=== PATIENT | female | born 1990 | race Caucasian/White ===

== ENCOUNTER 2017-07-09 18:26 | Emergency (ER) | payer MEDICARE, MEDICAID ==
[~2017-07-09] VITALS: Ht 165.1 cm; Wt 102.7 kg
[2017-07-09 18:27] VITALS: BP 131/88
== END 2017-07-09 20:38 | disposition left against medical advice (07) ==
LOC: M ED 18:26
DX: Z53.21 Procedure and treatment not carried out due to patient leaving prior to being seen by health care provider (principal)

== ENCOUNTER 2017-09-05 19:12 | Emergency (ER) | payer MEDICARE, MEDICAID ==
[2017-09-05 21:15] LABS: INFLUENZA A AMPLIFICATION NEGATIVE (NEGATIVE); INFLUENZA B AMPLIFICATION NEGATIVE (NEGATIVE)
== END 2017-09-05 22:18 | disposition home or self-care (01) ==
LOC: M ED 19:12
DX: B34.9 Viral infection, unspecified (principal); J06.9 Acute upper respiratory infection, unspecified; F17.210 Nicotine dependence, cigarettes, uncomplicated; Z79.51 Long term (current) use of inhaled steroids; Z87.42 Personal history of other diseases of the female genital tract
CPT/HCPCS: 87502

== ENCOUNTER 2019-08-24 21:06 | Emergency (ER) | payer MEDICARE, MEDICAID ==
[~2019-08-24 21:06] MED LIST: ADV250INH INH; BENZ200C70 PO; MUCI600T37 PO; ZOFR4TAB14 PO
[2019-08-25] MEDS ORDERED: LIDOCAINE 4% CREAM 5GM (LMX4) TOP STA (00:33)
[2019-08-25] MEDS ORDERED: ANEC4CRE3 TOP (00:35)
[2019-08-25] MEDS ORDERED: NAPR-837 PO (00:35)
[2019-08-25 00:42] VITALS: BP 159/89
[2019-08-25] MEDS ORDERED: NAPROXEN 250 MG TAB PO ONE (00:45)
--- NOTE | 2019-08-25 07:28 | REP ---
Right foot four views : There is no fracture or dislocation. Mineralization and joint spaces are normal. There are no calcifications or foreign bodies. Impression: Negative right foot . Electronically Signed by Seferino Estes MD 08/25/2019 07:20 A
--- NOTE | 2019-08-25 07:32 | REP ---
Right foot four views: Mineralization and joint spaces are unremarkable except that there may be fibrous union of the posterior talus with the calcaneus and the congenital variant. There is no fracture or dislocation. There are no calcifications or foreign bodies. 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 Otherwise, negative right foot. Electronically Signed by Seferino Estes MD 08/25/2019 07:23 A
== END 2019-08-25 00:50 | disposition home or self-care (01) ==
LOC: M ED 21:06
DX: M79.671 Pain in right foot (principal); J44.9 Chronic obstructive pulmonary disease, unspecified; F17.200 Nicotine dependence, unspecified, uncomplicated

== ENCOUNTER 2019-08-25 15:47 | Emergency (ER) | payer MEDICARE, MEDICAID ==
[~2019-08-25] VITALS: Ht 170.2 cm; Wt 106.0 kg
[~2019-08-25 15:47] MED LIST changes: +ANEC4CRE3 TOP; +NAPR-837 PO
--- NOTE | 2019-08-25 16:35 | REP ---
Left forearm two views : There is no fracture or dislocation. Mineralization and joint spaces are normal. There are no calcifications or foreign bodies. Impression: Negative left forearm . Electronically Signed by Seferino Estes MD 08/25/2019 04:26 P
[2019-08-25 20:31] VITALS: BP 140/70
== END 2019-08-25 20:34 | disposition home or self-care (01) ==
LOC: M ED 15:47 → EEVIPCON 15:47 → M ED 20:34
DX: S56.912A Strain of unspecified muscles, fascia and tendons at forearm level, left arm, initial encounter (principal); T76.11XA Adult physical abuse, suspected, initial encounter; X50.9XXA Other and unspecified overexertion or strenuous movements or postures, initial encounter; Y04.8XXA Assault by other bodily force, initial encounter; Y07.59 Other non-family member, perpetrator of maltreatment and neglect; Y92.009 Unspecified place in unspecified non-institutional (private) residence as the place of occurrence of the external cause; Y93.89 Activity, other specified; Y99.8 Other external cause status; J44.9 Chronic obstructive pulmonary disease, unspecified; F17.210 Nicotine dependence, cigarettes, uncomplicated

== ENCOUNTER 2021-04-02 15:37 | Emergency (ER) | payer MEDICARE, MEDICAID ==
[~2021-04-02] VITALS: Ht 170.2 cm; Wt 106.1 kg
[2021-04-02 15:37] VITALS: BP 136/83
== END 2021-04-02 16:54 | disposition left against medical advice (07) ==
LOC: M ED 15:37
DX: Z53.29 Procedure and treatment not carried out because of patient's decision for other reasons (principal)

== ENCOUNTER → 2021-05-24 | Outpatient (REF) | payer MEDICARE, MEDICAID ==
[2021-05-24 19:00] LABS: HEMOGLOBIN 15.8 g/dl (12.0-15.5); MEAN CORPUSCULAR HEMOGLOBIN 28.7 pg (27.0-33.0); MEAN CORPUSCULAR HGB CONC 32.9 g/dl (32.0-36.5); MEAN CORPUSCULAR VOLUME 87.3 fl (80.0-96.0); PLATELET COUNT, AUTOMATED 281 10^3/uL (150-450); WHITE BLOOD COUNT 9.4 10^3/uL (4.0-10.0)
[2021-05-24 20:38] LABS: HCG, SERUM QUANTITATIVE 1846 MIU/ML; HEPATITIS B SURFACE ANTIGEN NEGATIVE (NEGATIVE); HEPATITIS C VIRUS ABY INDEX < 0.0 INDEX (<0.8); HIV 1&2 SCREEN CENTAUR NEGATIVE (NEGATIVE)
== END ==
LOC: M LAB REF 16:35
PROVIDERS: ATTEND Advanced Practice Midwife
DX: Z32.01 Encounter for pregnancy test, result positive (principal)
CPT/HCPCS: 84702; 85027; 86762; 86780; 86803; 86850; 86900; 86901; 87086; 87340; 87389; J2790

== ENCOUNTER → 2021-06-21 | Outpatient (REF) | payer MEDICARE, MEDICAID ==
[2021-06-21 16:52] LABS: BASO # 0.1 10^3/uL (0.0-0.2); BASO % 0.5 % (0.0-1.0); EOS # 0.2 10^3/uL (0.0-0.5); EOS % 1.3 % (0.0-3.0); HEMATOCRIT 43.4 % (36.0-47.0); HEMOGLOBIN 14.5 g/dl (12.0-15.5); LYMPH # 2.8 10^3/uL (1.5-5.0); LYMPH % 20.7 % (24.0-44.0); MEAN CORPUSCULAR HEMOGLOBIN 28.9 pg (27.0-33.0); MEAN CORPUSCULAR HGB CONC 33.4 g/dl (32.0-36.5); MEAN CORPUSCULAR VOLUME 86.5 fl (80.0-96.0); MONO # 0.9 10^3/uL (0.0-0.8); MONO % 6.8 % (2.0-8.0); NEUTROPHILS # 9.7 10^3/uL (1.5-8.5); NEUTROPHILS % 70.3 % (36.0-66.0); PLATELET COUNT, AUTOMATED 278 10^3/uL (150-450); RED BLOOD COUNT 5.02 10^6/uL (4.00-5.40); WHITE BLOOD COUNT 13.8 10^3/uL (4.0-10.0)
== END ==
LOC: M LAB REF 16:28
PROVIDERS: ATTEND Advanced Practice Midwife
DX: Z34.01 Encounter for supervision of normal first pregnancy, first trimester (principal)

== ENCOUNTER → 2021-10-24 | Outpatient (CLI) | payer MEDICARE, MEDICAID ==
[2021-10-24 14:27] LABS: HEMATOCRIT 38.2 % (36.0-47.0); MEAN CORPUSCULAR HEMOGLOBIN 29.7 pg (27.0-33.0); MEAN CORPUSCULAR VOLUME 87.2 fl (80.0-96.0); PLATELET COUNT, AUTOMATED 266 10^3/uL (150-450); RED BLOOD COUNT 4.38 10^6/uL (4.00-5.40); WHITE BLOOD COUNT 14.7 10^3/uL (4.0-10.0)
== END ==
LOC: M LAB 12:51
PROVIDERS: ATTEND Obstetrics & Gynecology
DX: Z34.02 Encounter for supervision of normal first pregnancy, second trimester (principal)

== ENCOUNTER → 2021-12-01 | Outpatient (CLI) | payer MEDICARE ==
[~2021-12-01] MED LIST changes: +PRENTAB9 PO
[2021-12-01 16:15] LABS: BASO % 0.3 % (0.0-1.0); EOS # 0.1 10^3/uL (0.0-0.5); HEMATOCRIT 40.1 % (36.0-47.0); HEMOGLOBIN 13.4 g/dl (12.0-15.5); LYMPH # 2.4 10^3/uL (1.5-5.0); LYMPH % 16.8 % (24.0-44.0); MEAN CORPUSCULAR HEMOGLOBIN 28.8 pg (27.0-33.0); MEAN CORPUSCULAR HGB CONC 33.4 g/dl (32.0-36.5); MEAN CORPUSCULAR VOLUME 86.1 fl (80.0-96.0); MONO # 0.8 10^3/uL (0.0-0.8); MONO % 5.9 % (2.0-8.0); NEUTROPHILS # 10.8 10^3/uL (1.5-8.5); NEUTROPHILS % 75.4 % (36.0-66.0); PLATELET COUNT, AUTOMATED 227 10^3/uL (150-450); RED BLOOD COUNT 4.66 10^6/uL (4.00-5.40); WHITE BLOOD COUNT 14.3 10^3/uL (4.0-10.0)
[2021-12-01 16:32] LABS: URINE TOTAL PROTEIN 32.7 MG/DL (0-12)
[2021-12-01 16:46] LABS: ALT/SGPT 16 U/L (12-78); BILIRUBIN,TOTAL 0.7 MG/DL (0.2-1.0); CREATININE FOR GFR 0.89 MG/DL (0.55-1.30); GLOMERULAR FILTRATION RATE > 60.0 (>60); LDH LACTATE DEHYDROGENASE 191 U/L (84-246); URIC ACID 6.6 MG/DL (2.6-6.0)
[2021-12-01 19:36] LABS: TOTAL PROTEIN 24 HOUR URINE 310.6 MG/24HR (50-150)
== END ==
LOC: M LAB 15:10
PROVIDERS: ATTEND Obstetrics & Gynecology
DX: O13.3 Gestational [pregnancy-induced] hypertension without significant proteinuria, third trimester (principal)

== ENCOUNTER 2021-12-05 11:17 | Outpatient (CLI) | payer MEDICARE ==
[2021-12-05] VITALS (9 sets, daily range): BP systolic 137–152; BP diastolic 84–100
[~2021-12-05] VITALS: Ht 170.2 cm; Wt 117.6 kg
[~2021-12-05 11:17] MED LIST changes: -PRENTAB9 PO
[2021-12-05] MEDS ORDERED: PRENTAB9 PO (11:42)
[2021-12-05] MEDS ORDERED: HOME MED LIST COMPLETE! XX SCH (11:45)
[2021-12-05 12:59] LABS: HEMATOCRIT 40.8 % (36.0-47.0); HEMOGLOBIN 13.5 g/dl (12.0-15.5); MEAN CORPUSCULAR HEMOGLOBIN 28.7 pg (27.0-33.0); MEAN CORPUSCULAR HGB CONC 33.1 g/dl (32.0-36.5); MEAN CORPUSCULAR VOLUME 86.8 fl (80.0-96.0); PLATELET COUNT, AUTOMATED 209 10^3/uL (150-450); WHITE BLOOD COUNT 14.8 10^3/uL (4.0-10.0)
[2021-12-05 13:18] LABS: ALT/SGPT 13 U/L (12-78); BILIRUBIN,TOTAL 0.4 MG/DL (0.2-1.0); CREATININE FOR GFR 0.83 MG/DL (0.55-1.30); GLOMERULAR FILTRATION RATE > 60.0 (>60); LDH LACTATE DEHYDROGENASE 187 U/L (84-246); URIC ACID 6.4 MG/DL (2.6-6.0)
[2021-12-05 13:30] LABS: CREATININE,RANDOM URINE 72.7 MG/DL; TOTAL PROTEIN,RANDOM URINE 34.1 MG/DL (0.0-12.0)
[2021-12-05] MEDS ORDERED: BETAMETHASONE SOLUSPAN 6MG/ML 5ML VIAL (J0702 PER 3MG) IM SCH (15:00)
== END 2021-12-05 15:09 ==
LOC: M LDO 11:17
PROVIDERS: ATTEND Obstetrics & Gynecology
DX: O14.93 Unspecified pre-eclampsia, third trimester (principal); Z3A.33 33 weeks gestation of pregnancy
CPT/HCPCS: 36415; 59025; 76815; 76819; 76820; 82247; 82565; 82570; 83615; 84156; 84450; 84460; 84550; 85027; 96372; J0702

== ENCOUNTER 2021-12-06 14:58 | Outpatient (CLI) | payer MEDICARE ==
[~2021-12-06] VITALS: Ht 170.2 cm; Wt 119.1 kg
[~2021-12-06 14:58] MED LIST changes: +PRENTAB9 PO
[2021-12-06] MEDS ORDERED: BETAMETHASONE SOLUSPAN 6MG/ML 5ML VIAL (J0702 PER 3MG) IM ONE (15:20)
[2021-12-06 15:32] VITALS: BP 143/62
[2021-12-06] MEDS ORDERED: HOME MED LIST COMPLETE! XX SCH (15:40)
== END 2021-12-06 17:24 | disposition home or self-care (01) ==
LOC: M LDO 14:58
PROVIDERS: ATTEND Advanced Practice Midwife
DX: O14.93 Unspecified pre-eclampsia, third trimester (principal); Z3A.33 33 weeks gestation of pregnancy
CPT/HCPCS: 59025; 87426; 96372; J0702

== ENCOUNTER → 2022-02-15 | Outpatient (REF) | payer OTHER, MEDICAID ==
[~2022-02-15] MED LIST changes: +COLA100C5 PO; +IBUP80TA PO; +NIFE1TAB52 PO; +PERCOCET PO
== END ==
LOC: M LAB REF 16:15
PROVIDERS: ATTEND Advanced Practice Midwife
DX: Z32.02 Encounter for pregnancy test, result negative (principal)

== ENCOUNTER → 2022-04-04 | Outpatient (REF) | payer OTHER, MEDICAID ==
[2022-04-04 17:54] LABS: HEMATOCRIT 41.1 % (36.0-47.0); HEMOGLOBIN 13.2 g/dl (12.0-15.5); MEAN CORPUSCULAR HEMOGLOBIN 26.3 pg (27.0-33.0); MEAN CORPUSCULAR HGB CONC 32.1 g/dl (32.0-36.5); PLATELET COUNT, AUTOMATED 292 10^3/uL (150-450); RED BLOOD COUNT 5.01 10^6/uL (4.00-5.40); WHITE BLOOD COUNT 9.2 10^3/uL (4.0-10.0)
[2022-04-04 19:23] LABS: HCG, SERUM QUANTITATIVE 24563 MIU/ML
[2022-04-04 20:04] LABS: HEPATITIS B SURFACE ANTIGEN NEGATIVE (NEGATIVE)
[2022-04-04 20:30] LABS: HEPATITIS C VIRUS ABY INDEX < 0.0 INDEX (<0.8)
[2022-04-04 20:31] LABS: HIV 1&2 SCREEN CENTAUR NEGATIVE (NEGATIVE)
== END ==
LOC: M LAB REF 16:14
PROVIDERS: ATTEND Obstetrics & Gynecology
DX: Z32.01 Encounter for pregnancy test, result positive (principal); O36.80X0 Pregnancy with inconclusive fetal viability, not applicable or unspecified

== ENCOUNTER → 2022-07-06 | Outpatient (CLI) | payer MEDICARE, MEDICAID | LOC: M RAD 13:39 | PROVIDERS: ATTEND Obstetrics & Gynecology | DX: Z34.82 Encounter for supervision of other normal pregnancy, second trimester (principal) ==

== ENCOUNTER → 2022-08-13 | Outpatient (CLI) | payer MEDICARE, MEDICAID | LOC: M RAD 13:27 | PROVIDERS: ATTEND Advanced Practice Midwife | DX: Z34.82 Encounter for supervision of other normal pregnancy, second trimester (principal) ==

== ENCOUNTER → 2022-08-20 | Outpatient (CLI) | payer MEDICARE, MEDICAID ==
[2022-08-20 12:14] LABS: BASO # 0.1 10^3/uL (0.0-0.2); BASO % 0.4 % (0.0-1.0); EOS # 0.1 10^3/uL (0.0-0.5); EOS % 0.5 % (0.0-3.0); HEMATOCRIT 39.8 % (36.0-47.0); HEMOGLOBIN 13.2 g/dl (12.0-15.5); LYMPH # 1.9 10^3/uL (1.5-5.0); LYMPH % 11.9 % (24.0-44.0); MEAN CORPUSCULAR HEMOGLOBIN 29.5 pg (27.0-33.0); MEAN CORPUSCULAR HGB CONC 33.2 g/dl (32.0-36.5); MEAN CORPUSCULAR VOLUME 88.8 fl (80.0-96.0); MONO # 0.9 10^3/uL (0.0-0.8); MONO % 5.8 % (2.0-8.0); NEUTROPHILS % 80.5 % (36.0-66.0); PLATELET COUNT, AUTOMATED 267 10^3/uL (150-450); RED BLOOD COUNT 4.48 10^6/uL (4.00-5.40); WHITE BLOOD COUNT 16.1 10^3/uL (4.0-10.0)
[2022-08-20 12:38] LABS: URINE TOTAL PROTEIN 18.5 MG/DL (0-14)
[2022-08-20 12:42] LABS: ALT/SGPT 13 U/L (7.0-40); AST/SGOT 17 U/L (<34); BILIRUBIN,TOTAL 0.8 MG/DL (0.3-1.2); CREATININE FOR GFR 0.76 MG/DL (0.55-1.30); GLOMERULAR FILTRATION RATE > 60.0 (>60); LDH LACTATE DEHYDROGENASE 185 U/L (120-246)
[2022-08-20 12:53] LABS: TOTAL PROTEIN 24 HOUR URINE 198.8 MG/24HR (50-80)
== END ==
LOC: M LAB 11:49
PROVIDERS: ATTEND Obstetrics & Gynecology
DX: Z34.82 Encounter for supervision of other normal pregnancy, second trimester (principal); Z3A.00 Weeks of gestation of pregnancy not specified

== ENCOUNTER → 2022-08-27 | Outpatient (CLI) | payer MEDICARE, MEDICAID ==
[2022-08-27 15:00] LABS: HEMATOCRIT 35.7 % (36.0-47.0); HEMOGLOBIN 11.7 g/dl (12.0-15.5); MEAN CORPUSCULAR HEMOGLOBIN 28.8 pg (27.0-33.0); MEAN CORPUSCULAR HGB CONC 32.8 g/dl (32.0-36.5); MEAN CORPUSCULAR VOLUME 87.9 fl (80.0-96.0); PLATELET COUNT, AUTOMATED 243 10^3/uL (150-450); RED BLOOD COUNT 4.06 10^6/uL (4.00-5.40); WHITE BLOOD COUNT 14.5 10^3/uL (4.0-10.0)
== END ==
LOC: M LAB 12:24
PROVIDERS: ATTEND Obstetrics & Gynecology
DX: Z36.9 Encounter for antenatal screening, unspecified (principal); Z79.899 Other long term (current) drug therapy

== ENCOUNTER 2022-10-13 14:13 | Outpatient (CLI) | payer MEDICARE, MEDICAID ==
[~2022-10-13] VITALS: Ht 154.9 cm; Wt 109.9 kg
[2022-10-13] MEDS ORDERED: HOME MED LIST COMPLETE! XX SCH (14:25)
[2022-10-13 14:54] VITALS: BP 134/77
[2022-10-13] MEDS ORDERED: ASPI81CH33 PO (14:58)
[2022-10-13 15:25] VITALS: BP 119/66
[2022-10-13 15:35] LABS: APPEARANCE, URINE HAZY (CLEAR); BACTERIA, URINE AUTO 3+ (NEGATIVE); BILIRUBIN, URINE AUTO NEGATIVE (NEGATIVE); BLOOD, URINE BLOOD NEGATIVE (NEGATIVE); COLOR, URINE YELLOW (YELLOW); GLUCOSE, URINE (UA) AUTO NEGATIVE (NEGATIVE); KETONE, URINE AUTO NEGATIVE (NEGATIVE); LEUKOCYTE ESTERASE, URINE AUTO NEGATIVE (NEGATIVE); MUCUS, URINE SMALL (NEGATIVE); NITRITE, URINE AUTO NEGATIVE (NEGATIVE); PROTEIN, URINE AUTO NEGATIVE (NEGATIVE); RBC, URINE AUTO 0 /HPF (0-3); SPECIFIC GRAVITY URINE AUTO 1.008 (1.002-1.035); SQUAMOUS EPITHELIAL CELL UR AU 5 /HPF (0-6); WBC, URINE AUTO 1 /HPF (0-3)
[2022-10-13 16:17] VITALS: BP 135/76
[2022-10-13 17:19] VITALS: BP 127/66
[2022-10-13] MEDS ORDERED: NITR-67 PO (17:46)
== END 2022-10-13 17:50 | disposition home or self-care (01) ==
LOC: M LDO 14:13
PROVIDERS: ATTEND Obstetrics & Gynecology
DX: O26.893 Other specified pregnancy related conditions, third trimester (principal); M54.50 Low back pain, unspecified; Z3A.34 34 weeks gestation of pregnancy
CPT/HCPCS: 59025; 76815; 76819; 76820; 81001; G0463

== ENCOUNTER → 2022-10-23 | Outpatient (REF) | payer MEDICARE, MEDICAID ==
[~2022-10-23] MED LIST changes: +ASPI81CH33 PO; +FERR325T81 PO; +NITR-67 PO
== END ==
LOC: M LAB REF 17:30
PROVIDERS: ATTEND Obstetrics & Gynecology
DX: Z34.83 Encounter for supervision of other normal pregnancy, third trimester (principal)

== ENCOUNTER 2022-11-01 19:10 | Outpatient (CLI) | payer MEDICARE, MEDICAID ==
[~2022-11-01] VITALS: Ht 167.6 cm; Wt 109.0 kg
== END 2022-11-01 20:14 | disposition home or self-care (01) ==
LOC: M LDO 19:10
PROVIDERS: ATTEND Obstetrics & Gynecology
DX: O26.893 Other specified pregnancy related conditions, third trimester (principal); N89.8 Other specified noninflammatory disorders of vagina; Z87.59 Personal history of other complications of pregnancy, childbirth and the puerperium; Z3A.37 37 weeks gestation of pregnancy
CPT/HCPCS: 59025; 76815; G0463

== ENCOUNTER 2022-11-14 05:03 | Inpatient (IN) | payer MEDICARE, MEDICAID ==
[2022-11-14] VITALS (10 sets, daily range): BP systolic 116–161; BP diastolic 60–95
[~2022-11-14] VITALS: Ht 154.9 cm; Wt 108.6 kg
[2022-11-14] MEDS ORDERED: HOME MED LIST COMPLETE! XX SCH (05:25)
[2022-11-14] MEDS ORDERED: LACTATED RINGER'S 1000 ML IV STA (05:40)
[2022-11-14] MEDS ORDERED: LR 1,000 ML IV SCH (05:40)
[2022-11-14] MEDS ORDERED: ceFAZolin SOD 2 GM in IV 1 EA IV ONE (05:40)
[2022-11-14 06:04] LABS: HEMATOCRIT 40.1 % (36.0-47.0); HEMOGLOBIN 13.6 g/dl (12.0-15.5); MEAN CORPUSCULAR HEMOGLOBIN 29.2 pg (27.0-33.0); MEAN CORPUSCULAR HGB CONC 33.9 g/dl (32.0-36.5); MEAN CORPUSCULAR VOLUME 86.1 fl (80.0-96.0); PLATELET COUNT, AUTOMATED 246 10^3/uL (150-450); RED BLOOD COUNT 4.66 10^6/uL (4.00-5.40); WHITE BLOOD COUNT 14.5 10^3/uL (4.0-10.0)
[2022-11-14] MEDS ORDERED: MORPHINE PRES-FREE INJ 10 MG/10 ML VIAL As Ordered ONE (07:24)
[2022-11-14] MEDS ORDERED: KETOROLAC 60MG 2ML VIAL As Ordered ONE (07:24)
[2022-11-14] MEDS ORDERED: OXYTOCIN INJ 10UNITS/ML 1ML VIAL As Ordered ONE (07:24)
[2022-11-14] MEDS ORDERED: BICITRA 30ML SOLN UDC PO ONE (07:25)
[2022-11-14 08:23] LABS: CORD GAS ABE A -0.9; CORD GAS ABE V -3.1; CORD GAS HCO3 A 28.8 MEQ/L; CORD GAS O2 SAT A 21.7 %; CORD GAS O2 SAT V 74.6 %; CORD GAS PCO2 A 68.7 mmHg; CORD GAS PH A 7.241 UNITS; CORD GAS PH V 7.299 UNITS; CORD GAS PO2 A 11.3 mmHg; CORD GAS PO2 V 30.5 mmHg; CORD GAS SBC A 21.5 MEQ/L; CORD GAS SBC V 21.3 MEQ/L; CORD GAS TCO2 V 25.5 MEQ/L
[2022-11-14] MEDS ORDERED: SIMETHICONE 80MG CHEW TAB PO PRN (08:55)
[2022-11-14] MEDS ORDERED: OXYTOCIN DRIP 30 UNITS in IV 1 EA IV SCH (08:55)
[2022-11-14] MEDS ORDERED: RHOGAM 300MCG (1500IU) INJ IM SCH (08:55)
[2022-11-14] MEDS ORDERED: PERCOCET 5MG/325MG TAB PO PRN (08:55)
[2022-11-14] MEDS: PRENATAL VITAMINS CHEWABLE TABLET PO SCH (09:00)
[2022-11-14] MEDS: DOCUSATE SODIUM 100MG CAPSULE PO SCH ×2 (09:00→21:00)
[2022-11-14] MEDS ORDERED: METOCLOPRAMIDE INJ 10MG/2ML VIAL IV PRN (09:20)
[2022-11-14] MEDS ORDERED: ONDANSETRON 4MG 2ML VIAL IV PRN (09:20)
[2022-11-14] MEDS: SLF 3 ML SYR IV SCH ×2 (09:20→19:00)
[2022-11-14] MEDS ORDERED: **NOTE PATIENT COMMENT** MISC XX SCH (09:20)
[2022-11-14] MEDS ORDERED: NALOXONE INJ 0.4MG/1ML VIAL IV PRN ×2 (09:20)
[2022-11-14] MEDS ORDERED: diphenhydrAMINE 50MG/ML VIAL IV PRN (09:20)
[2022-11-14] MEDS ORDERED: fentaNYL 100 MCG/2 ML INJECTION IV PRN (09:20)
[2022-11-14] MEDS ORDERED: HYDROMORPHONE HCL 0.5 MG/ 0.5 ML SYRINGE IV PRN (09:20)
[2022-11-14] MEDS ORDERED: oxyCODONE 5MG TAB PO PRN (09:20)
[2022-11-14] MEDS ORDERED: OXYTOCIN 30UNITS IN 0.9% NaCl 500ML IV BAG As Ordered ONE (09:22)
[2022-11-14] MEDS: KETOROLAC 30 MG/ML 1ML VIAL IV SCH ×2 (14:55→21:00)
[2022-11-15] MEDS: SLF 3 ML SYR IV SCH (01:20)
[2022-11-15 02:00] VITALS: BP 124/60
[2022-11-15] MEDS: KETOROLAC 30 MG/ML 1ML VIAL IV SCH (04:30)
[2022-11-15 06:00] VITALS: BP 126/60
[2022-11-15 07:53] LABS: HEMATOCRIT 34.9 % (36.0-47.0); MEAN CORPUSCULAR HEMOGLOBIN 28.9 pg (27.0-33.0); MEAN CORPUSCULAR HGB CONC 32.7 g/dl (32.0-36.5); MEAN CORPUSCULAR VOLUME 88.6 fl (80.0-96.0); PLATELET COUNT, AUTOMATED 193 10^3/uL (150-450); RED BLOOD COUNT 3.94 10^6/uL (4.00-5.40); WHITE BLOOD COUNT 13.9 10^3/uL (4.0-10.0)
[2022-11-15 08:00] LABS: HEMOGLOBIN 11.4 g/dl (12.0-15.5)
[2022-11-15] MEDS: PRENATAL VITAMINS CHEWABLE TABLET PO SCH (08:54)
[2022-11-15] MEDS: DOCUSATE SODIUM 100MG CAPSULE PO SCH ×2 (08:54→21:00)
[2022-11-15 10:00] VITALS: BP 140/82
[2022-11-15] MEDS: IBUPROFEN 800 MG TAB PO SCH ×2 (11:00→18:28)
[2022-11-15 14:00] VITALS: BP 144/73
[2022-11-15 18:00] VITALS: BP 145/79
[2022-11-15 22:00] VITALS: BP 140/88
[2022-11-16 02:00] VITALS: BP 137/70
[2022-11-16] MEDS: IBUPROFEN 800 MG TAB PO SCH (03:00)
[2022-11-16 06:00] VITALS: BP 155/72
[2022-11-16] MEDS ORDERED: MEASLES,MUMPS,RUBELLA VACCINE INJ (MMR-II) SC.IMMUN ONE (09:00)
[2022-11-16] MEDS ORDERED: IBUP80TA PO (10:55)
== END 2022-11-16 12:55 | disposition home or self-care (01) | DRG 788 ==
LOC: M LDI 05:03 → M OBS 10:20
PROVIDERS: ADMIT Obstetrics & Gynecology; ATTEND Obstetrics & Gynecology
PROC: 10D00Z1 Extraction of Products of Conception, Low, Open Approach (ICD-10-PCS; principal; 2022-11-14 07:30)
DX: O34.211 Maternal care for low transverse scar from previous cesarean delivery (principal); Z3A.38 38 weeks gestation of pregnancy; Z37.0 Single live birth

== ENCOUNTER → 2023-08-21 | Outpatient (REF) | payer MEDICARE, MEDICAID ==
[2023-08-21 16:56] LABS: HEMOGLOBIN 15.1 g/dl (12.0-15.5); MEAN CORPUSCULAR HEMOGLOBIN 28.3 pg (27.0-33.0); MEAN CORPUSCULAR HGB CONC 32.8 g/dl (32.0-36.5); MEAN CORPUSCULAR VOLUME 86.3 fl (80.0-96.0); PLATELET COUNT, AUTOMATED 290 10^3/uL (150-450); RED BLOOD COUNT 5.33 10^6/uL (4.00-5.40)
[2023-08-21 17:39] LABS: HIV 1&2 SCREEN NEGATIVE (NEGATIVE)
[2023-08-21 17:48] LABS: HEPATITIS C VIRUS ABY INDEX 0.03 INDEX (<0.8)
[2023-08-21 18:02] LABS: HCG, SERUM QUANTITATIVE 4358.2 MIU/ML (<4.2)
== END ==
LOC: M LAB REF 16:20
PROVIDERS: ATTEND Obstetrics & Gynecology
DX: O36.80X0 Pregnancy with inconclusive fetal viability, not applicable or unspecified (principal)

== ENCOUNTER → 2023-08-28 | Outpatient (CLI) | payer MEDICARE, MEDICAID | LOC: M RAD 16:14 | PROVIDERS: ATTEND Obstetrics & Gynecology | DX: O36.80X0 Pregnancy with inconclusive fetal viability, not applicable or unspecified (principal); Z3A.01 Less than 8 weeks gestation of pregnancy ==

== ENCOUNTER → 2023-12-02 | Outpatient (CLI) | payer MEDICARE, MEDICAID | LOC: M RAD 13:38 | PROVIDERS: ATTEND Obstetrics & Gynecology | DX: Z34.82 Encounter for supervision of other normal pregnancy, second trimester (principal) ==

== ENCOUNTER → 2023-12-23 | Outpatient (CLI) | payer MEDICARE, MEDICAID | LOC: M RAD 15:01 | PROVIDERS: ATTEND Obstetrics & Gynecology | DX: Z34.82 Encounter for supervision of other normal pregnancy, second trimester (principal) ==

== ENCOUNTER → 2024-01-14 | Outpatient (CLI) | payer MEDICARE, MEDICAID ==
[2024-01-14 12:51] LABS: HEMATOCRIT 38.6 % (36.0-47.0); HEMOGLOBIN 12.8 g/dl (12.0-15.5); MEAN CORPUSCULAR HEMOGLOBIN 29.7 pg (27.0-33.0); MEAN CORPUSCULAR HGB CONC 33.2 g/dl (32.0-36.5); MEAN CORPUSCULAR VOLUME 89.6 fl (80.0-96.0); PLATELET COUNT, AUTOMATED 228 10^3/uL (150-450); RED BLOOD COUNT 4.31 10^6/uL (4.00-5.40)
== END ==
LOC: M LAB 11:20
PROVIDERS: ATTEND Obstetrics & Gynecology
DX: Z34.82 Encounter for supervision of other normal pregnancy, second trimester (principal)

== ENCOUNTER 2024-01-15 20:07 | Outpatient (CLI) | payer MEDICARE, MEDICAID ==
[~2024-01-15] VITALS: Ht 167.6 cm; Wt 110.0 kg
[2024-01-15 20:19] VITALS: BP 138/69
[2024-01-15] MEDS ORDERED: HOME MED LIST COMPLETE! XX SCH (20:40)
[2024-01-15] MEDS: FIORICET TAB PO ONE (21:20)
== END 2024-01-15 22:25 | disposition home or self-care (01) ==
LOC: M LDO 20:07
PROVIDERS: ATTEND Advanced Practice Midwife
DX: O26.892 Other specified pregnancy related conditions, second trimester (principal); R51.9 Headache, unspecified; Z87.59 Personal history of other complications of pregnancy, childbirth and the puerperium; Z3A.26 26 weeks gestation of pregnancy
CPT/HCPCS: 59025; G0463

== ENCOUNTER 2024-03-03 15:48 | Outpatient (CLI) | payer MEDICARE, MEDICAID ==
[~2024-03-03] VITALS: Ht 154.9 cm; Wt 110.0 kg
[2024-03-03] MEDS ORDERED: HOME MED LIST COMPLETE! XX SCH (16:10)
[2024-03-03 16:12] VITALS: BP 126/71
== END 2024-03-03 17:25 | disposition home or self-care (01) ==
LOC: M LDO 15:48
PROVIDERS: ATTEND Specialist
DX: O26.713 Subluxation of symphysis (pubis) in pregnancy, third trimester (principal); O34.219 Maternal care for unspecified type scar from previous cesarean delivery; R10.2 Pelvic and perineal pain; Z3A.33 33 weeks gestation of pregnancy
CPT/HCPCS: 59025; G0463

== ENCOUNTER → 2024-03-17 | Outpatient (REF) | payer MEDICARE, MEDICAID | LOC: M LAB REF 12:18 | PROVIDERS: ATTEND Obstetrics & Gynecology | DX: Z34.83 Encounter for supervision of other normal pregnancy, third trimester (principal) ==

== ENCOUNTER 2024-03-21 20:04 | Outpatient (CLI) | payer MEDICARE, MEDICAID ==
[~2024-03-21] VITALS: Ht 157.5 cm; Wt 111.4 kg
[2024-03-21 20:09] VITALS: BP 128/66; O2SAT 97
== END 2024-03-21 20:50 | disposition home or self-care (01) ==
LOC: M LDO 20:04
PROVIDERS: ATTEND Specialist
DX: O26.893 Other specified pregnancy related conditions, third trimester (principal); N89.8 Other specified noninflammatory disorders of vagina; Z3A.35 35 weeks gestation of pregnancy
CPT/HCPCS: 59025; G0463

== ENCOUNTER 2024-04-06 07:25 | Inpatient (IN) | payer MEDICARE, MEDICAID ==
[~2024-04-06] VITALS: Ht 170.2 cm; Wt 112.9 kg
[2024-04-06] VITALS (10 sets, daily range): BP systolic 119–147; BP diastolic 62–80; TEMP 97.3; O2SAT 96–100
[2024-04-06] MEDS ORDERED: HOME MED LIST COMPLETE! XX SCH (08:15)
[2024-04-06 08:25] LABS: HEMATOCRIT 35.5 % (36.0-47.0); HEMOGLOBIN 11.9 g/dl (12.0-15.5); MEAN CORPUSCULAR HEMOGLOBIN 28.6 pg (27.0-33.0); MEAN CORPUSCULAR HGB CONC 33.5 g/dl (32.0-36.5); MEAN CORPUSCULAR VOLUME 85.3 fl (80.0-96.0); PLATELET COUNT, AUTOMATED 211 10^3/uL (150-450); RED BLOOD COUNT 4.16 10^6/uL (4.00-5.40); WHITE BLOOD COUNT 13.1 10^3/uL (4.0-10.0)
[2024-04-06] MEDS: LACTATED RINGER'S 1000 ML IV STA (08:33)
[2024-04-06] MEDS: LR 1,000 ML IV SCH ×3 (08:34→17:25)
[2024-04-06] MEDS: BICITRA 30ML SOLN UDC PO ONE (09:34)
[2024-04-06] MEDS: ceFAZolin SOD 2 GM in IV 1 EA IV ONE (09:35)
[2024-04-06] MEDS ORDERED: ePHEDrine SULFATE 25 MG/5 ML(5MG/ML) SYRINGE As Ordered ONE (10:15)
[2024-04-06] MEDS ORDERED: OXYTOCIN INJ 10UNITS/ML 1ML VIAL As Ordered ONE (10:15)
[2024-04-06] MEDS ORDERED: fentaNYL 100 MCG/2 ML INJECTION As Ordered ONE (10:15)
[2024-04-06] MEDS ORDERED: MORPHINE PRES-FREE INJ 10 MG/10 ML VIAL As Ordered ONE (10:15)
[2024-04-06] MEDS ORDERED: KETOROLAC 60MG 2ML VIAL As Ordered ONE (10:38)
[2024-04-06 10:44] LABS: CORD GAS ABE A -2.6; CORD GAS HCO3 A 26.1 MMOL/L; CORD GAS O2 SAT A 27.4 %; CORD GAS PCO2 A 62.2 mmHg; CORD GAS PH A 7.241 UNITS; CORD GAS PO2 A 14.1 mmHg; CORD GAS SBC A 20.7 MMOL/L
[2024-04-06 10:45] LABS: CORD GAS ABE V -4.1; CORD GAS O2 SAT V 60.3 %; CORD GAS PCO2 V 49.2 mmHg; CORD GAS PH V 7.287 UNITS; CORD GAS PO2 V 23.5 mmHg; CORD GAS SBC V 20.3 MMOL/L; CORD GAS TCO2 V 24.5 MMOL/L
[2024-04-06] MEDS ORDERED: DOCUSATE SODIUM 100MG CAPSULE PO PRN (10:55)
[2024-04-06] MEDS ORDERED: PERCOCET 5MG/325MG TAB PO PRN ×2 (10:55)
[2024-04-06] MEDS ORDERED: RHO(D) IMMUNE GLOBULIN/MALTOSE 500MCG(2500IU)/2.2ML VIAL (WINRHO) IM SCH (10:55)
[2024-04-06] MEDS ORDERED: ONDANSETRON 4MG 2ML VIAL IV PRN ×2 (10:55→11:00)
[2024-04-06] MEDS ORDERED: METOCLOPRAMIDE INJ 10MG/2ML VIAL IV PRN ×2 (10:55→11:00)
[2024-04-06] MEDS ORDERED: MOM 30ML SUSPENSION UDC PO PRN (10:55)
[2024-04-06] MEDS ORDERED: METHYLERGONOVINE MALEATE 0.2 MG TAB PO PRN (10:55)
[2024-04-06] MEDS ORDERED: SIMETHICONE 80MG CHEW TAB PO PRN (10:55)
[2024-04-06] MEDS ORDERED: **NOTE PATIENT COMMENT** MISC XX SCH (11:00)
[2024-04-06] MEDS ORDERED: NALBUPHINE HCL 10 MG/ML 1ML AMP IV PRN (11:00)
[2024-04-06] MEDS ORDERED: MEPERIDINE 25 MG/ML 1ML VIAL IV PRN (11:00)
[2024-04-06] MEDS ORDERED: diphenhydrAMINE 50MG/ML VIAL IV PRN ×2 (11:00)
[2024-04-06] MEDS ORDERED: NALOXONE INJ 0.4MG/1ML VIAL IV PRN (11:00)
[2024-04-06] MEDS ORDERED: oxyCODONE 5MG TAB PO PRN (11:00)
[2024-04-06] MEDS ORDERED: OXYTOCIN 30UNITS IN 0.9% NaCl 500ML IV BAG As Ordered ONE (11:15)
[2024-04-06] MEDS: OXYTOCIN DRIP 30 UNITS in IV 1 EA IV SCH (11:40)
[2024-04-06] MEDS: LR 250 ML IV ONE ×2 (16:00→21:30)
[2024-04-06] MEDS: SLF 3 ML SYR IV SCH (16:11)
[2024-04-06] MEDS: KETOROLAC 30 MG/ML 1ML VIAL IV SCH (17:00)
[2024-04-07] MEDS: LR 250 ML IV ONE (00:30)
[2024-04-07 00:31] VITALS: BP 122/64; O2SAT 97
[2024-04-07 05:57] VITALS: BP 120/66; O2SAT 97
[2024-04-07 07:41] LABS: HEMOGLOBIN 11.3 g/dl (12.0-15.5); MEAN CORPUSCULAR HGB CONC 33.2 g/dl (32.0-36.5); MEAN CORPUSCULAR VOLUME 87.2 fl (80.0-96.0); PLATELET COUNT, AUTOMATED 187 10^3/uL (150-450); WHITE BLOOD COUNT 14.1 10^3/uL (4.0-10.0)
[2024-04-07] MEDS: PRENATAL VITAMINS CHEWABLE TABLET PO SCH (08:43)
[2024-04-07 10:54] VITALS: BP 128/71; O2SAT 98
[2024-04-07] MEDS: IBUPROFEN 800 MG TAB PO SCH (13:03)
[2024-04-07 16:21] VITALS: BP 130/60; O2SAT 97
[2024-04-07 18:24] VITALS: BP 139/67; O2SAT 99
[2024-04-07 22:00] VITALS: BP 142/64; O2SAT 98
[2024-04-08 02:00] VITALS: BP 130/80; O2SAT 97
[2024-04-08 06:03] VITALS: BP 152/70; O2SAT 97
[2024-04-08] MEDS: MEASLES,MUMPS,RUBELLA VACCINE INJ (MMR-II) SC.IMMUN ONE (08:14)
== END 2024-04-08 13:35 | disposition home or self-care (01) | DRG 788 ==
LOC: M LDI 07:25 → M OBS 12:00
PROVIDERS: ADMIT Obstetrics & Gynecology; ATTEND Obstetrics & Gynecology
PROC: 10D00Z1 Extraction of Products of Conception, Low, Open Approach (ICD-10-PCS; principal; 2024-04-06 09:30)
DX: O34.211 Maternal care for low transverse scar from previous cesarean delivery (principal); Z3A.38 38 weeks gestation of pregnancy; Z37.0 Single live birth

== ENCOUNTER → 2024-08-24 | Outpatient (REF) | payer MEDICARE, MEDICAID ==
[~2024-08-24] MED LIST changes: -ADV250INH INH; +ADVA1AER9 INH
[2024-08-24 14:36] LABS: BASO % 0.4 % (0.0-1.0); EOS # 0.1 10^3/uL (0.0-0.5); EOS % 1.3 % (0.0-3.0); HEMATOCRIT 41.9 % (36.0-47.0); HEMOGLOBIN 13.6 g/dl (12.0-15.5); LYMPH # 1.9 10^3/uL (1.5-5.0); LYMPH % 18.6 % (24.0-44.0); MEAN CORPUSCULAR HGB CONC 32.5 g/dl (32.0-36.5); MEAN CORPUSCULAR VOLUME 83.3 fl (80.0-96.0); MONO # 0.7 10^3/uL (0.0-0.8); MONO % 7.2 % (2.0-8.0); NEUTROPHILS # 7.4 10^3/uL (1.5-8.5); NEUTROPHILS % 72.1 % (36.0-66.0); PLATELET COUNT, AUTOMATED 292 10^3/uL (150-450); RED BLOOD COUNT 5.03 10^6/uL (4.00-5.40); WHITE BLOOD COUNT 10.3 10^3/uL (4.0-10.0)
[2024-08-24 15:06] LABS: BLOOD UREA NITROGEN 18 MG/DL (9-23); CALCIUM LEVEL 9.4 MG/DL (8.5-10.1); CARBON DIOXIDE LEVEL 27 MMOL/L (20-31); CHLORIDE LEVEL 107 MMOL/L (98-107); CHOLESTEROL LEVEL 155 MG/DL (<200); CHOLESTEROL RISK RATIO 3.84 (<5); CREATININE FOR GFR 0.92 MG/DL (0.55-1.30); GLOMERULAR FILTRATION RATE > 60.0 (>60); GLUCOSE, FASTING 100 MG/DL (60-100); HDL CHOLESTEROL 40.3 MG/DL (>40); LDL CHOLESTEROL 103.3 MG/DL (<100); NON-HDL-C 114.7 MG/DL; POTASSIUM SERUM 4.5 MMOL/L (3.5-5.1); SODIUM LEVEL 143 MMOL/L (136-145); TRIGLYCERIDES LEVEL 57 MG/DL (<150)
[2024-08-24 15:08] LABS: THYROID STIMULATING HORMONE 1.917 uIU/ML (0.55-4.78)
[2024-08-24 15:26] LABS: HEMOGLOBIN A1c 5.4 % (4.0-6.0)
== END ==
LOC: M LAB REF 13:41
PROVIDERS: ATTEND Nurse Practitioner Family
DX: Z23 Encounter for immunization (principal); E66.9 Obesity, unspecified; E07.9 Disorder of thyroid, unspecified

== ENCOUNTER 2025-03-02 15:22 | Emergency (ER) | payer MEDICARE, MEDICAID ==
[~2025-03-02] VITALS: Ht 167.6 cm; Wt 110.2 kg
[2025-03-02 17:18] LABS: BASO # 0.1 10^3/uL (0.0-0.2); BASO % 0.5 % (0.0-1.0); EOS # 0.2 10^3/uL (0.0-0.5); EOS % 2.2 % (0.0-3.0); LYMPH # 1.7 10^3/uL (1.5-5.0); LYMPH % 17.7 % (24.0-44.0); MONO # 0.8 10^3/uL (0.0-0.8); MONO % 8.6 % (2.0-8.0); NEUTROPHILS # 6.8 10^3/uL (1.5-8.5); NEUTROPHILS % 70.8 % (36.0-66.0); PLATELET COUNT, AUTOMATED 250 10^3/uL (150-450)
[2025-03-02 17:47] LABS: ALT/SGPT 20 U/L (7.0-40); AST/SGOT 18 U/L (<34); CALCIUM LEVEL 9.0 MG/DL (8.5-10.1); CARBON DIOXIDE LEVEL 27 MMOL/L (20-31); CHLORIDE LEVEL 105 MMOL/L (98-107); CREATININE FOR GFR 0.96 MG/DL (0.55-1.30); GLOMERULAR FILTRATION RATE 79.6 (>60); POTASSIUM SERUM 3.7 MMOL/L (3.5-5.1); SODIUM LEVEL 142 MMOL/L (136-145)
[2025-03-02 17:56] LABS: HCG, SERUM QUALITATIVE NEGATIVE (NEGATIVE)
[2025-03-02] MEDS ORDERED: SUCR1SS PO (18:13)
[2025-03-02] MEDS ORDERED: PANT40TA29 PO (18:13)
[2025-03-02] MEDS: LIDOCAINE VISCOUS 2% SOLN 15 ML UDC PO ONE (18:22)
[2025-03-02] MEDS: MAALOX 30 ML SUSP *UDC PO ONE (18:22)
[2025-03-02] MEDS: SUCRALFATE SUSP 1GM/10ML UD PO ONE (18:22)
[2025-03-02 18:42] VITALS: BP 128/73; TEMP 97.6; O2SAT 100
== END 2025-03-02 18:47 | disposition home or self-care (01) ==
LOC: M ED 15:22
DX: R10.9 Unspecified abdominal pain (principal); Z79.899 Other long term (current) drug therapy; Z79.810 Long term (current) use of selective estrogen receptor modulators (SERMs)